=== PATIENT | female | born 1945 | race Caucasian/White ===

== ENCOUNTER 2016-03-22 13:34 | Outpatient (CLI) | payer MEDICARE | END 2016-03-22 13:35 | disposition home or self-care (01) | DX: J20.9 Acute bronchitis, unspecified (principal) ==

== ENCOUNTER 2016-06-30 10:49 | Emergency (ER) | payer MEDICARE ==
[2016-06-30] MEDS ORDERED: DEXAMETHASONE 10 MG/ML VIAL PO STA (11:46)
[2016-06-30] MEDS ORDERED: BENZONATATE 100 MG CAPSULE PO STA (11:46)
[2016-06-30] MEDS ORDERED: IPRATROPIUM/ALBUTEROL 3 ML NEB INH STA (11:46)
[2016-06-30] MEDS ORDERED: guaiFENesin/CODEINE 5 ML UDC PO STA (11:46)
[2016-06-30] MEDS ORDERED: IPRATROPIUM/ALBUTEROL 3 ML NEB INH ONE (11:47)
--- NOTE | 2016-06-30 11:48 | ED Physician Documentation ---
History of Present Illness - Stated complaint Stated Complaint: SOA - Chief complaint Chief Complaint: Resp - Additonal information Additional information: hx from pt 71 female with COPD dx on recent CXR = PFTs pending non smoker inc cough and wheeze 2/2 seasonal allergies using MDI every hour but cannot breathe deeply enough to be effective no travel or leg edema no hx CHF Review of Systems Cardiac: denies: Chest pain / pressure Respiratory: reports: Dyspnea, Cough, Wheezing GI: denies: Abdominal Pain Musculoskeletal: denies: Extremity pain, Extremity swelling Endocrine: denies: Easy bruising / bleeding Immunocompromised: denies: Immunocompromised PD PAST MEDICAL HISTORY - Past Medical History Past Medical History: Yes Cardiovascular: Hypertension Respiratory: Asthma, COPD - Present Medications Home Medications: Ambulatory Orders Medication Instructions Recorded Confirmed Acetaminophen/Cod 300/30 [Tylenol 1 tab PO Q6HR PRN 06/30/16 06/30/16 #3] Albuterol 2.5 mg INH Q4H PRN #30 neb 06/30/16 Albuterol Sulf [Ventolin Hfa 2 puffs INH Q3HR PRN 06/30/16 06/30/16 Inhaler] Fluticasone [Flonase] 1 sprays ARLENE BID PRN #1 bottle 06/30/16 Lisinopril 10 mg PO PRN 06/30/16 06/30/16 predniSONE [Deltasone] 60 mg PO DAILY 5 Days 06/30/16 traMADol [Ultram] 50 mg PO DAILY PRN 06/30/16 06/30/16 - Allergies Allergies/Adverse Reactions: Allergies Allergy/AdvReac Type Severity Reaction Status Date / Time aspirin Allergy Anaphylaxis Verified 06/30/16 10:57 - Social History Does the pt smoke?: Yes Smoking Status: Current every day smoker - Immunizations Immunizations are current?: No PD ED PE NORMAL - Vitals Vital signs reviewed: Yes - General General: Alert and oriented X 3 - HEENT HEENT: Atraumatic - Neck Neck: Supple, no meningeal sign - Cardiac Cardiac: RRR - Respiratory Respiratory: Other (tight, poor air movement, no wheeze heard) - Abdomen Abdomen: Soft, Non tender - Extremities Extremities: No edema, No calf tenderness / cord - Neuro Neuro: Alert and oriented X 3 Results - Vitals Vitals: Vital Signs - 24 hr 06/30/16 06/30/16 06/30/16 10:53 11:50 12:19 Temperature 36.9 C Heart Rate 89 108 H 88 Respiratory 22 22 14 Rate Blood Pressure 170/90 H 166/94 H O2 Saturation 100 96 Oxygen O2 Source Room air PD MEDICAL DECISION MAKING - ED course ED course: pt having diff using MDI 2/2 tight shallow resp - feel pt will benefit from a nebulizer machine for administration of bronchodilators for her COPD exacerbations pt better after neb Departure - Departure Disposition: Home, Self Care Clinical Impression: COPD (chronic obstructive pulmonary disease) Qualifiers: COPD type: unspecified COPD Qualified Code(s): J44.9 - Chronic obstructive pulmonary disease, unspecified Condition: Good Instructions: ED COPD Flare Follow-Up: Norma Mcmahon ARNP [Primary Care Provider] - (for a recheck within 48 hr) Prescriptions: Albuterol 2.5 mg INH Q4H PRN #30 neb PRN Reason: Wheezing predniSONE [Deltasone] 60 mg PO DAILY 5 Days Fluticasone [Flonase] 1 sprays ARLENE BID PRN #1 bottle PRN Reason: allergies Comments: Your blood pressure was high today - please follow up with your PMD about that Forms: Activity restrictions
[2016-06-30] MEDS ORDERED: guaiFENesin/DEXTROMETHORPHAN 10 ML UDC PO STA (12:12)
[2016-06-30] MEDS ORDERED: BENZONATATE 100 MG CAPSULE PO ONE (12:12)
[2016-06-30] MEDS ORDERED: CHERRY SYRUP 10 ML UDC PO ONE (12:12)
[2016-06-30] MEDS ORDERED: guaiFENesin/DEXTROMETHORPHAN 10 ML UDC ONE (12:13)
[2016-06-30] MEDS ORDERED: DEXAMETHASONE 10 MG/ML VIAL ONE (12:13)
[2016-06-30 12:20] VITALS: BP 166/94
--- NOTE | 2016-06-30 13:16 | XRAY Report ---
EXAM: CHEST RADIOGRAPHY EXAM DATE: 06/30/2016 12:30 PM. CLINICAL HISTORY: Cough. COMPARISON: 03/22/2016. TECHNIQUE: 2 views. FINDINGS: Lungs/Pleura: New focal patchy small opacity in the medial anterior right lower lobe visualized. No p leural effusion. No pneumothorax. Mediastinum: Heart and mediastinal contours are unremarkable. IMPRESSION: New focal patchy small opacity in the medial anterior right lower lob, suggesting new fo masha infiltrate, pneumonia. [facility] Referring Provider Line: [phone] SITE ID: [id number]
== END 2016-06-30 13:25 | disposition home or self-care (01) ==
LOC: ED 10:49
DX: J44.9 Chronic obstructive pulmonary disease, unspecified (principal); I10 Essential (primary) hypertension; F17.200 Nicotine dependence, unspecified, uncomplicated
CPT/HCPCS: 71020; 94640; 94664; 99282; 99284; A9270; J7620

== ENCOUNTER 2016-12-02 10:34 | Outpatient (CLI) | payer MEDICARE ==
[2016-12-02 18:06] LABS: BASOPHILS # (AUTO) 0.1 10^3/uL (0.0-0.1); BASOPHILS % (AUTO) 0.9 %; EOSINOPHILS # (AUTO) 0.4 10^3/uL (0.0-0.7); EOSINOPHILS % (AUTO) 6.9 %; HCT - HEMATOCRIT 38.3 % (37.0-47.0); HGB - HEMOGLOBIN 12.7 g/dL (12.0-16.0); LYMPHOCYTES # (AUTO) 1.5 10^3/uL (1.5-3.5); LYMPHOCYTES % (AUTO) 25.9 %; MEAN CORPUSCULAR HEMOGLOBIN 28.9 pg (27.0-31.0); MEAN CORPUSCULAR HGB CONC 33.1 g/dL (32.0-36.0); MEAN CORPUSCULAR VOLUME 87.3 fL (81.0-99.0); MEAN PLATELET VOLUME 8.1 fL (7.9-10.8); MONOCYTES # (AUTO) 0.4 10^3/uL (0.0-1.0); MONOCYTES % (AUTO) 6.9 %; NEUTROPHILS # (AUTO) 3.4 10^3/uL (1.5-6.6); NEUTROPHILS % (AUTO) 59.4 %; RED BLOOD COUNT 4.38 10^6/uL (4.20-5.40); RED CELL DISTRIBUTION WIDTH 13.3 % (12.0-15.0); UNCORRECTED WHITE BLOOD COUNT 5.7 x10^3/uL; WHITE BLOOD COUNT 5.7 x10^3/uL (4.8-10.8)
[2016-12-02 18:48] LABS: ALBUMIN/GLOBULIN RATIO 1.3 (1.0-2.2); BILIRUBIN,TOTAL 0.7 mg/dL (0.2-1.0); BUN - BLOOD UREA NITROGEN 15 mg/dL (6-20); CALCIUM 8.6 mg/dL (8.5-10.3); CARBON DIOXIDE - CO2 26 mmol/L (21-32); CHLORIDE 106 mmol/L (101-111); CHOL/HDL RATIO 4.5 (<4.4); CHOLESTEROL 255 mg/dL; CREATININE 0.7 mg/dL (0.4-1.0); GFR - MDRD 83 (>89); GLUCOSE 93 mg/dL (70-100); HDL CHOLESTEROL 57 mg/dL; POTASSIUM 4.1 mmol/L (3.5-5.0); SODIUM 137 mmol/L (135-145); TOTAL PROTEIN 5.9 g/dL (6.7-8.2); TRIGLYCERIDES 127 mg/dL; VLDL CHOLESTEROL 25 mg/dL
== END 2016-12-02 10:35 | disposition home or self-care (01) ==
LOC: LAB.F 10:34
PROVIDERS: ATTEND Nurse Practitioner Family
DX: F32.9 Major depressive disorder, single episode, unspecified (principal); E78.5 Hyperlipidemia, unspecified
CPT/HCPCS: 80053; 80061; 84443; 85025

== ENCOUNTER 2017-01-07 15:22 | Outpatient (CLI) | payer MEDICARE ==
--- NOTE | 2017-01-08 08:26 | XRAY Report ---
TWO-VIEW CHEST: 01/07/2017 CLINICAL INDICATION: Cough. COMPARISON: 06/30/2016 FINDINGS: Frontal and lateral views of the chest demonstrate a normal cardiac silhouette. The previ ously noted parenchymal opacity in the medial right lower lobe persists. No effusion or pneumothorax is present. IMPRESSION: PERSISTENT PARENCHYMAL OPACITY IN THE MEDIAL RIGHT LOWER LOBE. CONSIDER CHEST CT FOR FU RTHER EVALUATION. JOB #: [id number] EXT JOB #:[id number]
== END 2017-01-07 15:23 | disposition home or self-care (01) ==
LOC: DI.S 15:22
PROVIDERS: ATTEND Nurse Practitioner Family
DX: R91.8 Other nonspecific abnormal finding of lung field (principal)
CPT/HCPCS: 71020

== ENCOUNTER 2017-01-14 14:43 | Outpatient (CLI) | payer MEDICARE ==
--- NOTE | 2017-01-15 13:52 | CT Report ---
EXAM: CT CHEST EXAM DATE: 01/14/2017 03:08 PM. CLINICAL HISTORY: COUGH. COMPARISONS: None. TECHNIQUE: Routine helical CT imaging was performed through the chest. IV contrast: None. Reconstruct ions: Coronal and sagittal. In accordance with CT protocol optimization, one or more of the following dose reduction techniques w ere utilized for this exam: automated exposure control, adjustment of mA and/or KV based on patient s ize, or use of iterative reconstructive technique. FINDINGS: Lungs/Pleura: There is a 3 mm pulmonary nodule in the left lung base (series 4, image 42). There is a 4 mm pulmonary nodule left lung base (series 4, image 37). No focal consolidation or pleural effusio n. Mediastinum: Normal. No adenopathy or masses. The heart and great vessels are normal. Bones: Unremarkable. Visualized Abdomen: Unremarkable. Other: None. IMPRESSION: 1. There are 2 pulmonary nodules in the left lung base measuring up to 4 mm. Please see/exercise nessa mmendations below. 2. No focal consolidation or pleural effusion. 3. No lymphadenopathy. Recommend follow-up of the described nodule(s) according to the following guidelines: Fleischner Society Recommendations 2017 MacMahon et al. Radiology 2017 Solid Nodules-Low Risk Patients: <6 mm (single or multiple) - No routine follow-up* 6-8 mm (single) -CT 6-12 at months, then consider CT at 18-24 months 6-8mm (multiple) -CT 3-6 at mo, then consider at CT 18-24 months >8 mm (single) -Consider CT, PET/CT, or tissue sampling at 3 months >8 mm (multiple) -CT 3-6 at mo, then consider CT at 18-24 months Solid Nodules-High Risk Patients: <6 mm (single or multiple) -Optional CT at 12 months* 6-8 mm (single) -CT at 6-12 months, then CT at 18-24 months 6-8mm (multiple) -CT at 3-6 months, then CT at 18-24 months >8 mm (single) -Consider CT, PET/CT, or tissue sampling at 3 months >8 mm (multiple) -CT at 3-6 months, then at 18-24 months *Nodules < 6mm do not require routine follow-up, but suspicious nodule morphology, upper lobe locatio n, or both may warrant 12 month follow-up Subsolid nodules: <6 mm (single, GG or part solid) -No routine follow-up >=6 mm (single GG) -CT at 6-12 months to confirm, then CT q2 years until 5 years >=6 mm (single part solid) -CT at 3-6 months to confirm, if unchanged and solid <6mm, annual CT for 5 years <6 mm (multiple GG or part solid) -CT at 3-6 months. If stable, consider CT at 2 and 4 years >=6 mm (multiple GG or part solid) -CT at 3-6 months. Subsequent management based on most suspicious nodule(s). Consider follow-up at 2 and 4 years for certain suspicious nodules <6mm. If solid component develo ps or growth, consider resection. [facility] Referring Provider Line: [phone] SITE ID: [id number]
== END 2017-01-14 14:44 | disposition home or self-care (01) ==
LOC: DI 14:43
PROVIDERS: ATTEND Nurse Practitioner Family
DX: R91.8 Other nonspecific abnormal finding of lung field (principal)
CPT/HCPCS: 71250

== ENCOUNTER 2017-02-27 08:00 | Outpatient (CLI) | payer MEDICARE ==
[2017-02-27 17:14] LABS: MUDS CUTOFF CONCENTRATIONS CUTOFF CONC BELOW:
[2017-02-27 17:55] LABS: AMPHETAMINE SCREEN,URINE NEGATIVE (NEGATIVE); BENZODIAZEPINES SCREEN, URINE NEGATIVE (NEGATIVE); COCAINE SCREEN URINE NEGATIVE (NEGATIVE); METHADONE SCREEN, URINE NEGATIVE (NEGATIVE); METHAMPHETAMINES SCREEN, URINE NEGATIVE (NEGATIVE); OPIATE SCREEN, URINE POSITIVE (NEGATIVE); OXYCODONE SCREEN, URINE NEGATIVE (NEGATIVE); PROPOXYPHENE SCREEN, URINE NEGATIVE (NEGATIVE); TRICYCLIC ANTIDEPRESSANT,URINE NEGATIVE (NEGATIVE)
== END 2017-02-27 08:01 ==
LOC: LAB.R 08:00
PROVIDERS: ATTEND Nurse Practitioner Family
DX: G89.29 Other chronic pain (principal)
CPT/HCPCS: 80306

== ENCOUNTER 2017-03-09 13:52 | Outpatient (CLI) | payer MEDICARE ==
[~2017-03-09 13:52] MED LIST: ALBUTEROL NEB 2.5 MG/3 ML INH ONE
[2017-03-09] MEDS ORDERED: ALBUTEROL NEB 2.5 MG/3 ML INH ONE (15:00)
== END 2017-03-09 13:53 | disposition home or self-care (01) ==
LOC: RT 13:52
PROVIDERS: ATTEND Nurse Practitioner Family
DX: R05 Cough (principal)
CPT/HCPCS: 94060; J7613

== ENCOUNTER 2017-12-22 10:38 | Outpatient (CLI) | payer MEDICARE ==
--- NOTE | 2017-12-22 14:58 | Ultrasound Report ---
Reason: ABDOMINAL MASS Procedure Date: 12/22/2017 Accession Number: [id number] / [id number] Procedure: US - Abdomen Limited CPT Code: FULL RESULT: EXAM: ABDOMEN ULTRASOUND LIMITED, RUQ EXAM DATE: 12/22/2017 11:22 AM. CLINICAL HISTORY: Abdominal mass. COMPARISON: None. TECHNIQUE: Real-time scanning was performed with static images obtained. FINDINGS: Abdominal Wall: Focused ultrasound is performed over the patient's right lower quadrant at the site of a palpable mass at the site of an old appendectomy site. There is a narrow necked, fat-containing hernia which is not reducible with the probe pressure. No evidence of entrapped bowel. The neck of the hernia measures roughly 1.2 x 1.1 cm in transverse dimension; herniated fat measures roughly 4 cm in size. IMPRESSION: Focal fat-containing abdominal wall hernia at the site of a prior appendectomy site as described. [facility]
== END 2017-12-22 10:39 | disposition home or self-care (01) ==
LOC: DI 10:38
PROVIDERS: ATTEND Nurse Practitioner Family
DX: K43.9 Ventral hernia without obstruction or gangrene (principal)
CPT/HCPCS: 76705

== ENCOUNTER 2018-02-19 09:03 | Outpatient (CLI) | payer MEDICARE ==
[2018-02-19 09:08] LABS: MUDS CUTOFF CONCENTRATIONS CUTOFF CONC BELOW:
[2018-02-19 17:22] LABS: BASOPHILS % (AUTO) 0.8 %; EOSINOPHILS # (AUTO) 0.5 10^3/uL (0.0-0.7); EOSINOPHILS % (AUTO) 8.6 %; LYMPHOCYTES # (AUTO) 1.8 10^3/uL (1.5-3.5); LYMPHOCYTES % (AUTO) 32.6 %; MEAN CORPUSCULAR HEMOGLOBIN 28.9 pg (27.0-31.0); MEAN CORPUSCULAR HGB CONC 32.9 g/dL (32.0-36.0); MEAN CORPUSCULAR VOLUME 87.9 fL (81.0-99.0); MEAN PLATELET VOLUME 8.3 fL (7.9-10.8); MONOCYTES # (AUTO) 0.4 10^3/uL (0.0-1.0); MONOCYTES % (AUTO) 6.5 %; NEUTROPHILS # (AUTO) 2.8 10^3/uL (1.5-6.6); NEUTROPHILS % (AUTO) 51.5 %; PLT - PLATELET COUNT 253 10^3/uL (130-450); RED BLOOD COUNT 4.51 10^6/uL (4.20-5.40); RED CELL DISTRIBUTION WIDTH 13.4 % (12.0-15.0); WHITE BLOOD COUNT 5.5 x10^3/uL (4.8-10.8)
[2018-02-19 17:35] LABS: ALBUMIN 3.3 g/dL (3.2-5.5); ALBUMIN/GLOBULIN RATIO 1.2 (1.0-2.2); ALKALINE PHOSPHATASE 52 IU/L (42-121); ALT ALANINE AMINOTRANSFERASE 18 IU/L (10-60); AST ASPARTATE AMINOTRANSFERASE 21 IU/L (10-42); BILIRUBIN,TOTAL 0.9 mg/dL (0.2-1.0); BUN - BLOOD UREA NITROGEN 13 mg/dL (6-20); CALCIUM 8.8 mg/dL (8.5-10.3); CARBON DIOXIDE - CO2 29 mmol/L (21-32); CHLORIDE 104 mmol/L (101-111); CHOL/HDL RATIO 3.9 (<4.4); CHOLESTEROL 288 mg/dL; CREATININE 0.7 mg/dL (0.4-1.0); GFR - MDRD 82 (>89); GLUCOSE 92 mg/dL (70-100); HDL CHOLESTEROL 74 mg/dL; LDL CHOLESTEROL,CALCULATED 191 mg/dL; LDL/HDL RATIO 2.6 (<4.4); SODIUM 140 mmol/L (135-145); VLDL CHOLESTEROL 23 mg/dL
[2018-02-19 17:42] LABS: AMPHETAMINE SCREEN,URINE NEGATIVE (NEGATIVE); BENZODIAZEPINES SCREEN, URINE NEGATIVE (NEGATIVE); COCAINE SCREEN URINE NEGATIVE (NEGATIVE); METHADONE SCREEN, URINE NEGATIVE (NEGATIVE); METHAMPHETAMINES SCREEN, URINE NEGATIVE (NEGATIVE); OPIATE SCREEN, URINE POSITIVE (NEGATIVE); OXYCODONE SCREEN, URINE NEGATIVE (NEGATIVE); PROPOXYPHENE SCREEN, URINE NEGATIVE (NEGATIVE); TRICYCLIC ANTIDEPRESSANT,URINE NEGATIVE (NEGATIVE)
== END 2018-02-19 09:04 | disposition home or self-care (01) ==
LOC: LAB.F 09:03
PROVIDERS: ATTEND Nurse Practitioner Family
DX: I10 Essential (primary) hypertension (principal); Z79.891 Long term (current) use of opiate analgesic; E78.5 Hyperlipidemia, unspecified; F32.9 Major depressive disorder, single episode, unspecified
CPT/HCPCS: 36415; 80053; 80061; 80306; 83721; 84443; 85025

== ENCOUNTER 2018-04-17 15:26 | Outpatient (CLI) | payer MEDICARE ==
--- NOTE | 2018-04-18 17:37 | XRAY Report ---
Reason: COPD,ACUTE EXACERBATION Procedure Date: 04/17/2018 Accession Number: [id number] / [id number] Procedure: XR - Chest 2 View X-Ray CPT Code: 61859 FULL RESULT: EXAM: CHEST RADIOGRAPHY EXAM DATE: 04/17/2018 03:34 PM. CLINICAL HISTORY: COPD, acute exacerbation. COMPARISON: CHEST 2 VIEW PA/LAT 06/30/2016 11:52 AM. TECHNIQUE: 2 views. FINDINGS: Lungs/Pleura: No focal opacities evident. No pleural effusion. No pneumothorax. High normal lung volumes and flattened diaphragms are compatible with given history of COPD. Mediastinum: Heart and mediastinal contours are unremarkable. Other: None. IMPRESSION: COPD with no acute consolidation detected. [facility]
== END 2018-04-17 15:27 | disposition home or self-care (01) ==
LOC: DI 15:26
PROVIDERS: ATTEND Nurse Practitioner
DX: J44.1 Chronic obstructive pulmonary disease with (acute) exacerbation (principal)
CPT/HCPCS: 71046

== ENCOUNTER 2019-01-21 09:39 | Outpatient (CLI) | payer MEDICARE ==
[2019-01-21 17:25] LABS: BASOPHILS # (AUTO) 0.1 10^3/uL (0.0-0.1); EOSINOPHILS # (AUTO) 0.5 10^3/uL (0.0-0.7); HGB - HEMOGLOBIN 12.5 g/dL (12.0-16.0); LYMPHOCYTES # (AUTO) 2.1 10^3/uL (1.5-3.5); LYMPHOCYTES % (AUTO) 33.4 %; MEAN CORPUSCULAR HEMOGLOBIN 27.7 pg (27.0-31.0); MEAN CORPUSCULAR HGB CONC 30.2 g/dL (32.0-36.0); MEAN CORPUSCULAR VOLUME 91.8 fL (81.0-99.0); MEAN PLATELET VOLUME 10.6 fL (7.9-10.8); MONOCYTES # (AUTO) 0.5 10^3/uL (0.0-1.0); MONOCYTES % (AUTO) 7.5 %; NEUTROPHILS # (AUTO) 3.1 10^3/uL (1.5-6.6); NEUTROPHILS % (AUTO) 49.8 %; PLT - PLATELET COUNT 274 10^3/uL (130-450); RED BLOOD COUNT 4.51 10^6/uL (4.20-5.40); RED CELL DISTRIBUTION WIDTH 12.6 % (12.0-15.0); WHITE BLOOD COUNT 6.1 x10^3/uL (4.8-10.8)
[2019-01-21 17:50] LABS: ALBUMIN 3.5 g/dL (3.2-5.5); ALBUMIN/GLOBULIN RATIO 1.3 (1.0-2.2); ALKALINE PHOSPHATASE 46 IU/L (42-121); ALT ALANINE AMINOTRANSFERASE 15 IU/L (10-60); AST ASPARTATE AMINOTRANSFERASE 20 IU/L (10-42); BILIRUBIN,TOTAL 0.8 mg/dL (0.2-1.0); BUN - BLOOD UREA NITROGEN 14 mg/dL (6-20); CALCIUM 8.9 mg/dL (8.5-10.3); CARBON DIOXIDE - CO2 31 mmol/L (21-32); CHLORIDE 103 mmol/L (101-111); CHOL/HDL RATIO 3.6 (<4.4); CHOLESTEROL 270 mg/dL; CREATININE 0.7 mg/dL (0.4-1.0); GFR - MDRD 82 (>89); GLUCOSE 96 mg/dL (70-100); HDL CHOLESTEROL 74 mg/dL; LDL CHOLESTEROL,CALCULATED 169 mg/dL; LDL/HDL RATIO 2.3 (<4.4); SODIUM 139 mmol/L (135-145); TOTAL PROTEIN 6.3 g/dL (6.7-8.2); VLDL CHOLESTEROL 27 mg/dL
== END 2019-01-21 09:40 | disposition home or self-care (01) ==
LOC: LAB.S 09:39
PROVIDERS: ATTEND Physician Assistant Medical
DX: I10 Essential (primary) hypertension (principal); E78.5 Hyperlipidemia, unspecified
CPT/HCPCS: 36415; 80053; 80061; 83721; 85025

== ENCOUNTER 2019-09-24 10:40 | Outpatient (CLI) | payer MEDICARE ==
[2019-09-24 15:13] LABS: BASOPHILS # (AUTO) 0.1 10^3/uL (0.0-0.1); EOSINOPHILS # (AUTO) 0.6 10^3/uL (0.0-0.7); EOSINOPHILS % (AUTO) 8.1 %; LYMPHOCYTES # (AUTO) 1.7 10^3/uL (1.5-3.5); LYMPHOCYTES % (AUTO) 23.1 %; MEAN CORPUSCULAR HEMOGLOBIN 27.9 pg (27.0-31.0); MEAN CORPUSCULAR HGB CONC 30.8 g/dL (32.0-36.0); MEAN CORPUSCULAR VOLUME 90.6 fL (81.0-99.0); MEAN PLATELET VOLUME 10.4 fL (7.9-10.8); MONOCYTES # (AUTO) 0.5 10^3/uL (0.0-1.0); NEUTROPHILS # (AUTO) 4.3 10^3/uL (1.5-6.6); NEUTROPHILS % (AUTO) 60.4 %; PLT - PLATELET COUNT 259 10^3/uL (130-450); RED BLOOD COUNT 4.66 10^6/uL (4.20-5.40); RED CELL DISTRIBUTION WIDTH 12.9 % (12.0-15.0); WHITE BLOOD COUNT 7.1 x10^3/uL (4.8-10.8)
[2019-09-24 16:17] LABS: ALBUMIN 3.5 g/dL (3.2-5.5); ALBUMIN/GLOBULIN RATIO 1.6 (1.0-2.2); ALKALINE PHOSPHATASE 51 IU/L (42-121); ALT ALANINE AMINOTRANSFERASE 18 IU/L (10-60); AST ASPARTATE AMINOTRANSFERASE 22 IU/L (10-42); BILIRUBIN,TOTAL 0.7 mg/dL (0.2-1.0); BUN - BLOOD UREA NITROGEN 16 mg/dL (6-20); CALCIUM 9.1 mg/dL (8.5-10.3); CARBON DIOXIDE - CO2 29 mmol/L (21-32); CHLORIDE 106 mmol/L (101-111); CHOL/HDL RATIO 3.7 (<4.4); CHOLESTEROL 264 mg/dL; CREATININE 0.9 mg/dL (0.4-1.0); GLUCOSE 98 mg/dL (70-100); HDL CHOLESTEROL 72 mg/dL; LDL CHOLESTEROL,CALCULATED 171 mg/dL; LDL/HDL RATIO 2.4 (<4.4); SODIUM 139 mmol/L (135-145); TOTAL PROTEIN 5.7 g/dL (6.7-8.2); VLDL CHOLESTEROL 21 mg/dL
== END 2019-09-24 10:41 | disposition home or self-care (01) ==
LOC: LAB.S 10:40
PROVIDERS: ATTEND Physician Assistant
DX: R53.83 Other fatigue (principal); Z79.899 Other long term (current) drug therapy; J44.9 Chronic obstructive pulmonary disease, unspecified; Z79.891 Long term (current) use of opiate analgesic; E78.5 Hyperlipidemia, unspecified; F32.9 Major depressive disorder, single episode, unspecified; I10 Essential (primary) hypertension
CPT/HCPCS: 36415; 80053; 80061; 82306; 83721; 84443; 85025

== ENCOUNTER 2020-06-16 08:45 | Outpatient (CLI) | payer MEDICARE | END 2020-06-16 08:46 | disposition home or self-care (01) | LOC: LAB.S 08:45 | PROVIDERS: ATTEND Physician Assistant | DX: F32.9 Major depressive disorder, single episode, unspecified (principal); R53.83 Other fatigue | CPT/HCPCS: 36415; 82306; 82607 ==

== ENCOUNTER 2021-02-17 14:13 | Outpatient (CLI) | payer MEDICARE ==
[2021-02-17 18:00] LABS: BASOPHILS # (AUTO) 0.1 10^3/uL (0.0-0.1); BASOPHILS % (AUTO) 0.7 %; EOSINOPHILS # (AUTO) 0.5 10^3/uL (0.0-0.7); HCT - HEMATOCRIT 39.6 % (37.0-47.0); LYMPHOCYTES # (AUTO) 1.6 10^3/uL (1.5-3.5); MEAN CORPUSCULAR HGB CONC 32.8 g/dL (32.0-36.0); MEAN CORPUSCULAR VOLUME 88.2 fL (81.0-99.0); MONOCYTES # (AUTO) 0.6 10^3/uL (0.0-1.0); MONOCYTES % (AUTO) 6.4 %; NEUTROPHILS # (AUTO) 6.9 10^3/uL (1.5-6.6); NEUTROPHILS % (AUTO) 71.4 %; PLT - PLATELET COUNT 273 10^3/uL (130-450); RED BLOOD COUNT 4.49 10^6/uL (4.20-5.40); RED CELL DISTRIBUTION WIDTH 12.4 % (12.0-15.0); WHITE BLOOD COUNT 9.7 x10^3/uL (4.8-10.8)
[2021-02-17 18:15] LABS: ALBUMIN 3.3 g/dL (3.2-5.5); ALBUMIN/GLOBULIN RATIO 1.2 (1.0-2.2); ALKALINE PHOSPHATASE 43 IU/L (42-121); ALT ALANINE AMINOTRANSFERASE 12 IU/L (10-60); AST ASPARTATE AMINOTRANSFERASE 16 IU/L (10-42); BILIRUBIN,TOTAL 0.3 mg/dL (0.2-1.0); BUN - BLOOD UREA NITROGEN 14 mg/dL (6-20); CALCIUM 8.9 mg/dL (8.5-10.3); CARBON DIOXIDE - CO2 24 mmol/L (21-32); CHLORIDE 105 mmol/L (101-111); CHOL/HDL RATIO 4.3 (<4.4); CHOLESTEROL 268 mg/dL; CREATININE 0.8 mg/dL (0.4-1.0); GFR - MDRD 70 (>89); GLUCOSE 105 mg/dL (70-100); HDL CHOLESTEROL 63 mg/dL; LDL CHOLESTEROL,CALCULATED 141 mg/dL; LDL/HDL RATIO 2.2 (<4.4); POTASSIUM 3.6 mmol/L (3.5-5.0); SODIUM 136 mmol/L (135-145); TOTAL PROTEIN 6.1 g/dL (6.7-8.2); TRIGLYCERIDES 318 mg/dL; VLDL CHOLESTEROL 64 mg/dL
== END 2021-02-17 14:14 | disposition home or self-care (01) ==
LOC: LAB.S 14:13
PROVIDERS: ATTEND Internal Medicine
DX: I10 Essential (primary) hypertension (principal); Z13.220 Encounter for screening for lipoid disorders
CPT/HCPCS: 36415; 80053; 80061; 83721; 85025

== ENCOUNTER 2021-05-26 10:52 | Outpatient (CLI) | payer MEDICARE | END 2021-05-26 10:53 | disposition short-term general hospital (02) | LOC: EMS 10:52 | DX: R07.9 Chest pain, unspecified (principal); R94.31 Abnormal electrocardiogram [ECG] [EKG] | CPT/HCPCS: A0425; A0429 ==

== ENCOUNTER 2021-07-19 08:00 | Outpatient (CLI) | payer MEDICARE ==
--- NOTE | 2021-07-19 16:48 | XRAY Report ---
PROCEDURE: Shoulder 3 View LT INDICATIONS: LEFT SHOULDER TENDINITIS TECHNIQUE: 3 views of the shoulder were acquired. COMPARISON: None. FINDINGS: Bones: No fractures or dislocations. No suspicious bony lesions. Visualized ribs appear intact. M ild periarticular osteophyte formation at the acromioclavicular and glenohumeral joints. Soft tissues: No suspicious soft tissue calcifications. IMPRESSION: Osteoarthritis. No acute fracture. No osseous lesion. If symptoms and/or clinical suspic ion for pathology continue, further assessment with repeat plain films, or advanced imaging (e.g., CT , MRI, or bone scan) is recommended for further assessment. Reviewed by: Tonya Pitts MD on 07/19/2021 4:46 PM PDT Approved by: Tonya Pitts MD on 07/19/2021 4:46 PM PDT Station ID: [id number]
--- NOTE | 2021-07-19 17:23 | XRAY Report ---
PROCEDURE: Lumbar Spine 2 View INDICATIONS: LOW BACK PAIN TECHNIQUE: 2 views of the lumbar spine were acquired. COMPARISON: None. FINDINGS: Bones: 5 [id number] vertebrae are present. There is trace, approximately 2 mm of L4-L5 degener ative anterolisthesis. No vertebral body compression fractures. No suspicious bony lesions. Moderate to severe L5-S1 degenerative disease. Moderate L4-L5 degenerative disease. Mild L1-L2 and L3-L4 dege nerative disease. Moderate L2-L3, L4, L4-L5 and L5-S1 facet hypertrophy. Mild L1-L2 facet hypertrophy . Soft tissues: Overlying bowel gas pattern is normal. No suspicious soft tissue calcifications. IMPRESSION: 1. Multilevel degenerative disc disease. 2. Multilevel facet arthropathy. 3. No fracture. No acute osseous lesion. If there is continued clinical concern for pathology, then M RI should be considered for further evaluation. Reviewed by: Camila Almaguer MD, PhD on 07/19/2021 5:22 PM PDT Approved by: Camila Almaguer MD, PhD on 07/19/2021 5:22 PM PDT Station ID: [id number]
== END 2021-07-19 23:59 | disposition home or self-care (01) ==
LOC: DI.S 08:00
PROVIDERS: ATTEND Emergency Medicine
DX: M47.816 Spondylosis without myelopathy or radiculopathy, lumbar region (principal); M47.896 Other spondylosis, lumbar region; M43.16 Spondylolisthesis, lumbar region; M51.36 Other intervertebral disc degeneration, lumbar region; M75.22 Bicipital tendinitis, left shoulder; M19.012 Primary osteoarthritis, left shoulder

== ENCOUNTER 2022-02-16 19:08 | Emergency (ER) | payer MEDICARE ==
[2022-02-16] MEDS ORDERED: diltiaZEM INJ 5 MG/ML VIAL IVP STA (19:24)
--- NOTE | 2022-02-16 19:26 | ED Physician Documentation ---
History of Present Illness - Stated complaint Stated Complaint: CHEST PX/SENT BY WALK IN - Chief complaint Chief Complaint: Cardiac - Additonal information Additional information: History is provided by patient who is a reliable historian. 76-year-old female comes to the emergency department for concerns of atrial fibrillation. Reports that yesterday about 8 AM she began having chest pressure without radiation. She went to a local walk-in clinic today who advised her to come to the emergency department when found to be in a fib She presents with an EKG showing a rhythm of atrial fibrillation in the 120s. The patient states that she had a heart attack in May 2021. She did have stent placement in the [facility]. She is followed by Dr. Arroyo and is scheduled to see him this upcoming . Patient reports to me that she ran out of her metoprolol about 3 days ago. Prescription is ready to fill though the pharmacy is closed on the weekend Patient has no alcohol or tobacco history. Denies any previous history of A. fib. No syncope or exertional dyspnea. meds: Lisinopril 5 mg daily, Plavix 75 mg daily, aspirin 81 mg daily, atorvastatin 80 mg daily, Metoprolol succinate 50 mg daily Review of Systems Constitutional: denies: Fever, Chills Cardiac: reports: Chest pain / pressure, Palpitations. denies: Pedal edema, C mara pain Respiratory: denies: Dyspnea, Cough, Hemoptysis GI: reports: Reviewed and negative : reports: Reviewed and negative Skin: reports: Reviewed and negative Musculoskeletal: reports: Reviewed and negative PD PAST MEDICAL HISTORY - Past Medical History Cardiovascular: Hypertension Respiratory: Asthma, COPD - Present Medications Home Medications: Ambulatory Orders Medication Instructions Recorded Confirmed Acetaminophen/Cod 300/30 [Tylenol 1 tab PO Q6HR PRN 06/30/16 06/30/16 #3] Albuterol 2.5 mg INH Q4H PRN #30 neb 06/30/16 Albuterol Sulf [Ventolin Hfa 2 puffs INH Q3HR PRN 06/30/16 06/30/16 Inhaler] Azithromycin [Zithromax] 250 mg PO DAILY #6 tablet 06/30/16 Benzonatate [Tessalon] 100 mg PO TID PRN #20 capsule 06/30/16 Benzonatate [Tessalon] 100 mg PO TID PRN #20 capsule 06/30/16 Fluticasone [Flonase] 1 sprays ARLENE BID PRN #1 bottle 06/30/16 guaiFENesin/CODEINE [Robitussin AC] 5 - 10 ml PO Q6H PRN #120 udc 06/30/16 predniSONE [Deltasone] 60 mg PO DAILY 5 Days tablet 06/30/16 traMADol [Ultram] 50 mg PO DAILY PRN 06/30/16 06/30/16 Apixaban [Eliquis] 2.5 mg PO BID #60 tablet 02/16/22 Aspirin [Vazalore] 81 mg PO DAILY 02/16/22 02/16/22 Atorvastatin Calcium 40 mg PO QPM 02/16/22 02/16/22 Clopidogrel [Plavix] 75 mg PO DAILY 02/16/22 02/16/22 Metoprolol Succinate [Toprol Xl] 50 mg PO DAILY #7 tablet 02/16/22 lisinopriL [Zestril] 5 mg PO DAILY 02/16/22 02/16/22 - Allergies Allergies/Adverse Reactions: Allergies Allergy/AdvReac Type Severity Reaction Status Date / Time aspirin Allergy Anaphylaxis Verified 06/30/16 10:57 - Social History Does the pt smoke?: Yes Smoking Status: Current every day smoker - Immunizations Immunizations are current?: No PD ED PE NORMAL - General General: Alert and oriented X 3, No acute distress, Well developed/nourished - HEENT HEENT: Atraumatic, Moist mucous membranes - Neck Neck: Supple, no meningeal sign, No adenopathy - Cardiac Cardiac: No murmur, Strong equal pulses. No: RRR (Irregularly irregular. 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 Eye Opening: Spontaneous Motor: Obeys Commands Verbal: Oriented GCS Score: 15 Results - Vitals Vitals: Vital Signs - 24 hr 02/16/22 02/16/22 02/16/22 19:10 19:45 20:13 Temperature 36.5 C Heart Rate 96 78 98 Respiratory 19 14 27 H Rate Blood Pressure 184/104 H 165/91 H 113/73 O2 Saturation 100 98 98 02/16/22 20:59 Temperature Heart Rate 90 Respiratory 18 Rate Blood Pressure 118/104 H O2 Saturation 100 Oxygen O2 Source Room air - EKG (time done) 193 Rate: Rate (enter#) (82) Rhythm: Atrial fibrillation [place]: Normal Intervals: No: Prolonged QT QRS: Low voltage Ischemia: Normal ST segments Compare to prior EKG: Old EKG unavailable Computer interpretation: Agree with computer - Labs Labs: Laboratory Tests 02/16/22 02/16/22 02/16/22 19:20 19:20 19:20 WBC 10.0 RBC 4.27 Hgb 12.2 Hct 38.4 MCV 89.9 MCH 28.6 MCHC 31.8 L RDW 13.8 Plt Count 291 MPV 9.4 Neut # (Auto) 8.1 H Lymph # (Auto) 1.3 L [place] # (Auto) 0.5 Eos # (Auto) 0.0 Baso # (Auto) 0.1 Absolute Nucleated RBC 0.00 Nucleated RBC % 0.0 PT 10.8 INR 1.0 Sodium 137 Potassium 4.2 Chloride 105 Carbon Dioxide 24 Anion Gap 8.0 BUN 19 Creatinine 0.9 Estimated GFR (MDRD) 61 L Glucose 125 H Calcium 9.4 Total Bilirubin 0.9 AST 25 ALT 21 Alkaline Phosphatase 52 Troponin I High Sens Total Protein 7.2 Albumin 3.9 Globulin 3.3 Albumin/Globulin Ratio 1.2 Lipase 39 TSH Free T4 02/16/22 02/16/22 19:20 19:20 WBC RBC Hgb Hct MCV MCH MCHC RDW Plt Count MPV Neut # (Auto) Lymph # (Auto) [place] # (Auto) Eos # (Auto) Baso # (Auto) Absolute Nucleated RBC Nucleated RBC % PT INR Sodium Potassium Chloride Carbon Dioxide Anion Gap BUN Creatinine Estimated GFR (MDRD) Glucose Calcium Total Bilirubin AST ALT Alkaline Phosphatase Troponin I High Sens 19.5 H* Total Protein Albumin Globulin Albumin/Globulin Ratio Lipase TSH 0.77 Free T4 0.87 - Rads (name of study) cxr Radiology: EMP read indepedently (No acute cardiopulmonary process) PD Medical Decision Making - ED course Complexity details: reviewed results, re-evaluated patient, considered differential, d/w patient ED course: 76-year-old female presents to the emergency department for evaluation of chest pain and pressure that she noticed yesterday morning when she woke up. She does have a history of a myocardial infarction in May of this last year for which she underwent LAD stenting at [place]. She is scheduled to see Dr. Arroyo this upcoming . Due to the persistent chest pressure she went to a local walk-in clinic this afternoon where they did an EKG and found her to be in A. fib with a heart rate of 120 she was thus advised to come to the emergency department for further evaluation. She has no dyspnea. No history of similar in the past. On presentation to the emergency department she is alert and well-appearing. Initial heart rate was atrial for bearable with a rate in the 120s. She was well-appearing alert and normotensive. She was given 10 mg of Cardizem which appropriately slowed her heart rate into the 80s and 90s though it remained atrial fibrillation. I then administered a 30 mg dose of oral Cardizem. Patient reported to me that she had metoprolol now for about 3 days and due to pharmacy closure has been unable to fill the readied prescription. We did obtain routine labs here in the emergency department including a CBC electrolytes troponin and thyroid panel. No acute worrisome findings however her troponin was mildly elevated at 19.8. This is likely a mild elevation in the setting of A. fib without rate control. A repeat troponin Was 22 essentially flat or static. Patient does have a CHADS2 Vasc score of 5 giving her a 7% risk of stroke associated with A. fib over the next year. Given this she will be started on Eliquis 2.5 mg daily (Patient weighs 58 kg.) She is advised to stop taking the aspirin and Plavix. Given that she has been out of the metoprolol now for 3 to 4 days I will also give her a limited prescription for the metoprolol until she is able to fill it at this pharmacy this week. Resuming the metoprolol should be appropriate for rate control Given the small dose of diltiazem she received here in the ER Patient is scheduled to see Dr. Arroyo in follow-up this upcoming . At that time she will discuss this ED visit as well as her recent myocardial infarction. She would likely benefit from an outpatient echo. Otherwise emergent return precautions were discussed. Departure - Departure Disposition: Home, Self Care Clinical Impression: Atrial fibrillation Qualifiers: Atrial fibrillation type: unspecified Qualified Code(s): I48.91 - Unspecified atrial fibrillation Condition: Stable Record reviewed to determine appropriate education?: Yes Instructions: Atrial Fibrillation Dc, Apixaban oral tablets Prescriptions: Apixaban [Eliquis] 2.5 mg PO BID #60 tablet Metoprolol Succinate [Toprol Xl] 50 mg PO DAILY #7 tablet Comments: Ada shaw were seen today in the emergency department because you developed some chest pain and chest pressure yesterday morning. You do have a history of myocardial infarction in May for which she received stenting. You were found to be in atrial fibrillation. Your initial heart rate was in the 120s but a single dose of 10 mg of diltiazem appropriately reduced your heart rate into the 80s. You have been out of your metoprolol now for about 3 days and this may be one of the causes. However you are at high risk for a stroke associated with atrial fibrillation if you are not anticoagulated therefore we will start you on Eliquis an anticoagulant. You will take 2.5 mg twice daily. If at any point you develop sudden severe headache, have uncontrolled vomiting, have black or bloody stools, fall or strike your head you should come immediately to the ER for evaluation. You must stop taking the aspirin and Plavix at this time. I have written a 7-day prescription for Metroprolol. This is also been sent to the [facility] in [place]. This would be an appropriate medication to control your atrial fibrillation rate, Until you fill your waiting prescription at [facility] [place] When you see Dr. Arroyo this upcoming please discuss this ED visit. He may want to consider outpatient echocardiogram for further evaluation of your atrial fibrillation. If at any point you develop chest pain have shortness of air when walking, any fainting episodes then you should return immediately to the ER for a second evaluation
[2022-02-16 19:27] LABS: BASOPHILS # (AUTO) 0.1 10^3/uL (0.0-0.1); BASOPHILS % (AUTO) 0.6 %; EOSINOPHILS % (AUTO) 0.3 %; HCT - HEMATOCRIT 38.4 % (37.0-47.0); HGB - HEMOGLOBIN 12.2 g/dL (12.0-16.0); LYMPHOCYTES # (AUTO) 1.3 10^3/uL (1.5-3.5); LYMPHOCYTES % (AUTO) 12.7 %; MEAN CORPUSCULAR HEMOGLOBIN 28.6 pg (27.0-31.0); MEAN CORPUSCULAR HGB CONC 31.8 g/dL (32.0-36.0); MEAN CORPUSCULAR VOLUME 89.9 fL (81.0-99.0); MEAN PLATELET VOLUME 9.4 fL (7.9-10.8); MONOCYTES # (AUTO) 0.5 10^3/uL (0.0-1.0); MONOCYTES % (AUTO) 4.8 %; NEUTROPHILS # (AUTO) 8.1 10^3/uL (1.5-6.6); NEUTROPHILS % (AUTO) 81.3 %; PLT - PLATELET COUNT 291 10^3/uL (130-450); RED BLOOD COUNT 4.27 10^6/uL (4.20-5.40); RED CELL DISTRIBUTION WIDTH 13.8 % (12.0-15.0)
--- NOTE | 2022-02-16 19:37 | XRAY Report ---
PROCEDURE: Chest 1 View X-Ray INDICATIONS: Chest Pain TECHNIQUE: One view of the chest was acquired. COMPARISON: Chest radiograph 04/17/2018 FINDINGS: Surgical changes and devices: None. Lungs and pleura: No pleural effusions or pneumothorax. No definite suspicious focal airspace opacit y identified. Mediastinum: Cardiac silhouette is within normal limits for size. Bones and chest wall: No suspicious bony lesions. Overlying soft tissues appear unremarkable. IMPRESSION: No acute cardiopulmonary abnormality. Reviewed by: Aly Dash MD on 02/16/2022 7:36 PM PST Approved by: Aly Dash MD on 02/16/2022 7:36 PM [facility] Station ID: [id number]
--- OUTSIDE RECORDS SUMMARY | 2022-02-16 19:42 | EXTERNAL MEDICAL SUMMARY RPT | Continuity of Care Document ---
:1945 Author Organization [place] Address [address] [place] [address] Phone Care Team Providers Name Role Phone Unavailable Unavailable Unavailable Pamela Boles Unavailable Unavailable Allergies No information. Encounters No information. Functional Status No information. Immunizations No information. Medications date description facility 2021-11-29 00:00 prednisone [facility] noemi 2021-12-07 00:00 prednisone [facility] noemi 2021-11-29 00:00 ACETAMINOPHEN-CODEINE [facility] noemi 2021-11-30 00:00 ACETAMINOPHEN-CODEINE [facility] noemi 2021-12-07 00:00 ACETAMINOPHEN-CODEINE [facility] noemi 2021-11-29 00:00 fluticasone propion-salmeterol [facility] noemi 2021-11-29 00:00 acetaminophen-codeine [facility] C noemi 2021-11-30 00:00 acetaminophen-codeine [facility] noemi 2021-12-07 00:00 acetaminophen-codeine [facility] noemi 2021-11-29 00:00 lisinopril [facility] Verena franklin 2021-11-30 00:00 lisinopril [facility] C noemi 2021-12-07 00:00 lisinopril [facility] C noemi 2021-11-29 00:00 prednisone [facility] Verena franklin 2021-11-30 00:00 prednisone [facility] noemi 2021-12-07 00:00 prednisone [facility] C noemi 2021-11-29 00:00 prednisone [facility] C noemi 2021-12-07 00:00 prednisone [facility] C noemi 2021-11-29 00:00 prednisone [facility] C noemi 2021-11-30 00:00 prednisone [facility] C noemi 2021-12-07 00:00 prednisone [facility] C noemi 2021-11-29 00:00 prednisone [facility] C noemi 2021-12-07 00:00 prednisone [facility] C noemi 2021-11-29 00:00 prednisone [facility] C noemi 2021-11-30 00:00 prednisone [facility] C noemi 2021-12-07 00:00 prednisone [facility] C noemi 2021-11-29 00:00 aspirin [facility] C noemi 2021-11-30 00:00 aspirin [facility] C noemi 2021-12-07 00:00 aspirin [facility] Verena franklin 2021-11-29 00:00 fluticasone propion-salmeterol [facility] C noemi 2021-11-29 00:00 fluticasone propion-salmeterol [facility] C noemi 2021-11-29 00:00 prednisone [facility] C noemi 2021-12-07 00:00 prednisone [facility] C noemi 2021-11-29 00:00 prednisone [facility] C noemi 2021-11-30 00:00 prednisone [facility] C noemi 2021-12-07 00:00 prednisone [facility] C noemi 2021-11-29 00:00 atorvastatin [facility] C noemi 2021-11-30 00:00 atorvastatin [facility] C noemi 2021-12-07 00:00 atorvastatin [facility] C noemi 2021-11-29 00:00 lisinopril [facility] C noemi 2021-11-30 00:00 lisinopril [facility] C noemi 2021-12-07 00:00 lisinopril [facility] C noemi 2021-11-29 00:00 loratadine [facility] C onemi 2021-12-07 00:00 loratadine [facility] C noemi 2021-11-29 00:00 clopidogrel [facility] C noemi 2021-11-30 00:00 clopidogrel [facility] C noemi 2021-12-07 00:00 clopidogrel [facility] C noemi 2021-11-29 00:00 lisinopril [facility] C noemi 2021-11-30 00:00 lisinopril [facility] C noemi 2021-12-07 00:00 lisinopril [facility] C noemi 2021-11-29 00:00 loratadine [facility] C noemi 2021-12-07 00:00 loratadine [facility] C noemi 2021-11-29 00:00 lisinopril [facility] C noemi 2021-11-30 00:00 lisinopril [facility] C noemi 2021-12-07 00:00 lisinopril [facility] C noemi 2021-11-29 00:00 ACETAMINOPHEN-CODEINE [facility] C noemi 2021-11-30 00:00 ACETAMINOPHEN-CODEINE [facility] C noemi 2021-12-07 00:00 ACETAMINOPHEN-CODEINE [facility] C noemi 2021-11-29 00:00 acetaminophen-codeine [facility] C noemi 2021-11-30 00:00 acetaminophen-codeine [facility] C noemi 2021-12-07 00:00 acetaminophen-codeine [facility] C noemi 2021-11-29 00:00 atorvastatin [facility] C noemi 2021-11-30 00:00 atorvastatin [facility] C noemi 2021-12-07 00:00 atorvastatin [facility] C noemi 2021-11-29 00:00 loratadine [facility] C noemi 2021-12-07 00:00 loratadine [facility] C noemi 2021-11-29 00:00 albuterol sulfate [facility] C noemi 2021-11-29 00:00 fluticasone propion-salmeterol [facility] C noemi 2021-11-29 00:00 albuterol sulfate [facility] C noemi 2021-11-29 00:00 clopidogrel [facility] C noemi 2021-11-30 00:00 clopidogrel [facility] C noemi 2021-12-07 00:00 clopidogrel [facility] C noemi 2021-11-29 00:00 loratadine [facility] C noemi 2021-12-07 00:00 loratadine [facility] C noemi 2021-11-29 00:00 clopidogrel [facility] C noemi 2021-11-30 00:00 clopidogrel [facility] C noemi 2021-12-07 00:00 clopidogrel [facility] C noemi 2021-11-29 00:00 atorvastatin [facility] C noemi 2021-11-30 00:00 atorvastatin [facility] C noemi 2021-12-07 00:00 atorvastatin [facility] C noemi 2021-11-29 00:00 aspirin [facility] C noemi 2021-11-30 00:00 aspirin [facility] C noemi 2021-12-07 00:00 aspirin [facility] C noemi 2021-11-29 00:00 ACETAMINOPHEN-CODEINE [facility] C noemi 2021-11-30 00:00 ACETAMINOPHEN-CODEINE [facility] C noemi 2021-12-07 00:00 ACETAMINOPHEN-CODEINE [facility] C noemi 2021-11-29 00:00 acetaminophen-codeine [facility] C noemi 2021-11-30 00:00 acetaminophen-codeine [facility] C noemi 2021-12-07 00:00 acetaminophen-codeine [facility] C noemi 2021-11-29 00:00 atorvastatin [facility] C noemi 2021-11-30 00:00 atorvastatin [facility] C noemi 2021-12-07 00:00 atorvastatin [facility] C noemi 2021-11-29 00:00 albuterol sulfate [facility] C noemi 2021-11-29 00:00 aspirin [facility] C noemi 2021-11-30 00:00 aspirin [facility] C noemi 2021-12-07 00:00 aspirin [facility] C noemi 2021-11-29 00:00 albuterol sulfate [facility] Verena franklin 2021-11-29 00:00 clopidogrel [facility] C noemi 2021-11-30 00:00 clopidogrel [facility] C noemi 2021-12-07 00:00 clopidogrel [facility] C noemi 2021-11-29 00:00 ACETAMINOPHEN-CODEINE [facility] Verena franklin 2021-11-30 00:00 ACETAMINOPHEN-CODEINE [facility] Verena franklin 2021-12-07 00:00 ACETAMINOPHEN-CODEINE [facility] Verena franklin 2021-11-29 00:00 acetaminophen-codeine [facility] Verena franklin 2021-11-30 00:00 acetaminophen-codeine [facility] Verena franklin 2021-12-07 00:00 acetaminophen-codeine [facility] Verena franklin Problems date description facility 2021-11-29 00:00 Thyroid disorder screening [facility] Verena franklin 2021-11-29 00:00 Panniculitis of neck [facility] Pr [facility] Verena franklin 2021-11-29 00:00 Long-term drug therapy [facility] Verena franklin 2021-11-29 00:00 Family history of alcoholism Walk-In [facility] Primary [facility] & Ancillary Services Verena franklin 2021-11-29 00:00 Hyperlipidemia screening [facility] Verena franklin 2021-11-29 00:00 Other and unspecified [facility] Care & hyperlipidemia Ancillary Services Verena franklin 2021-11-29 00:00 Depressive disorder, not elsewhere [facility] & classified [facility] Services C noemi 2021-11-29 00:00 Depressive disorder Walk[facility] Shiel[facility] Verena franklin 2021-11-29 00:00 Hypertensive disorder [facility] Verena franklin 2021-11-29 00:00 Unspecified essential hypertension [facility] Verena franklin 2021-11-29 00:00 Seasonal allergy [facility] Verena franklin 2021-11-29 00:00 Allergic rhinitis, cause [facility] & unspecified Ancillary Services Verena franklin 2021-11-29 00:00 Asthma, unspecified [facility] Shiela wilbur Care [facility] Anc[facility] Services Verena franklin 2021-11-29 00:00 Hyperlipidemia [facility] Verena franklin 2021-11-29 00:00 Chronic pain [facility] Verena franklin 2021-11-29 00:00 Reactive airway disease [facility] Verena cabanoemi 2021-11-29 00:00 Hyperlipidemia, unspecified [facility]In [facility] in [facility] Services Verena franklin 2021-11-29 00:00 Major depressive disorder, single Walk -[facility] Primary Care & episode, unspecified Ancillary Services Kaden 2021-11-29 00:00 Other chronic pain [facility] Verena noemi 2021-11-29 00:00 Essential (primary) hypertension [facility] Verena franklin 2021-11-29 00:00 Other seasonal allergic rhinitis [facility] Verena cabanoemi 2021-11-29 00:00 Unspecified asthma, uncomplicated [facility] Verena franklin 2021-11-29 00:00 Low back pain [facility] Verena franklin 2021-11-29 00:00 Long-term (current) drug use Walk-In [facility] Primary Care & Anc[facility] Services Verena franklin 2021-11-29 00:00 Alcoholism in family Walk[facility] Pr [facility] Services Verena franklin 2021-11-29 00:00 Screening for thyroid disorders [facility] Verena franklin 2021-11-29 00:00 Screening for lipoid disorders [facility] Verena franklin 2021-11-29 00:00 Encounter for screening for lipoid [facility] disorders [facility] Services Verena franklin 2021-11-29 00:00 Encounter for screening for other Walk -[facility] Primary Care & suspected endocrine disorder Ancillary S viky Alfonso 2021-11-29 00:00 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[facility] Primary Care & therapy Ancillary Services Verena franlkin 2021-11-29 00:00 Family history of alcohol abuse and Wa lk-In Clinic Primary Care & dependence Ancillary Services Verena franklin 2021-11-30 00:00 Panniculitis of neck Walk-In [facility] Pr [facility] Services Verena franklin 2021-11-30 00:00 Family history of alcoholism Walk-In [facility] Primary Care & Ancillary Services Verena franklin 2021-11-30 00:00 Other and unspecified Walk[facility] Care & hyperlipidemia Ancillary Services Verena franklin 2021-11-30 00:00 Depressive disorder, not elsewhere [facility] classified [facility] Services Verena franklin 2021-11-30 00:00 Depressive disorder Walk-In Clinic [facility] Care & Ancillary Services Verena franklin 2021-11-30 00:00 Hypertensive disorder [facility] Verena franklin 2021-11-30 00:00 Unspecified essential hypertension [facility] Verena franklin 2021-11-30 00:00 Seasonal allergy [facility] Verena franklin 2021-11-30 00:00 Allergic rhinitis, cause [facility] Care & unspecified Ancillary Services Verena franklin 2021-11-30 00:00 Asthma, unspecified Walk[facility]In [facility] Care & Ancillary Services Verena franklin 2021-11-30 00:00 Hyperlipidemia [facility] Verena franklin 2021-11-30 00:00 Chronic pain [facility] Verena franklin 2021-11-30 00:00 Reactive airway disease [facility] Verena franklin 2021-11-30 00:00 Hyperlipidemia, unspecified Walk[facility] Primary Care & Ancillary Services C noemi 2021-11-30 00:00 Major depressive disorder, single Walk -[facility] Primary Care & episode, unspecified Ancillary Services Kaden 2021-11-30 00:00 Other chronic pain [facility] Verena franklin 2021-11-30 00:00 Essential (primary) hypertension [facility] Services Verena franklin 2021-11-30 00:00 Other seasonal allergic rhinitis [facility]- [facility] Services C noemi 2021-11-30 00:00 Unspecified asthma, uncomplicated [facility] Verena franklin 2021-11-30 00:00 Low back pain [facility] Verena franklin 2021-11-30 00:00 Alcoholism in family Walk-In [facility] Pr [facility] & Anc[facility] Services Verena franklin 2021-11-30 00:00 Family history of alcohol abuse and Wa lk-In Clinic Primary Care & dependence Ancillary Services Verena franklin 2021-12-07 00:00 Panniculitis of neck Walk[facility] Pr [facility] Anc[facility] Services Verena franklin 2021-12-07 00:00 Family history of alcoholism Walk-In [facility] Primary Care & Ancillary Services Verena franklin 2021-12-07 00:00 Other and unspecified Walk-In [facility] P [facility] Care & hyperlipidemia Ancillary Services Verena franklin 2021-12-07 00:00 Depressive disorder, not elsewhere [facility] Care & classified Ancillary Services Verena franklin 2021-12-07 00:00 Depressive disorder Walk-In [facility] Shiela wilbur Care & Ancillary Services Verena franklin 2021-12-07 00:00 Hypertensive disorder Walk-In [facility] P [facility] & Anc[facility] Services Verena franklin 2021-12-07 00:00 Unspecified essential hypertension [facility] Services Verena franklin 2021-12-07 00:00 Seasonal allergy Walk[facility] Services Verena franklin 2021-12-07 00:00 Allergic rhinitis, cause [facility] Care & unspecified Ancillary Services Verena franklin 2021-12-07 00:00 Asthma, unspecified [facility] Shiela wilbur Care & Ancillary Services Verena franklin 2021-12-07 00:00 Hyperlipidemia Walk-In [facility] Services Verena cabanoemi 2021-12-07 00:00 Chronic pain Walk-[facility] Services Verena franklin 2021-12-07 00:00 Reactive airway disease [facility] Services Verena franklin 2021-12-07 00:00 Hyperlipidemia, unspecified [facility]In [facility] & Ancillary Services Verena franklin 2021-12-07 00:00 Major depressive disorder, single Walk -In [facility] Primary Care & episode, unspecified Ancillary Services Kaden 2021-12-07 00:00 Other chronic pain [facility] Services Verena franklin 2021-12-07 00:00 Essential (primary) hypertension [facility]- [facility] Ancillary Services Verena franklin 2021-12-07 00:00 Other seasonal allergic rhinitis [facility]- [facility] Ancillary Services Verena franklin 2021-12-07 00:00 Unspecified asthma, uncomplicated [facility] Ancillary Services Verena franklin 2021-12-07 00:00 Low back pain [facility]In [facility] Ancillary Services Verena cabanoemi 2021-12-07 00:00 Alcoholism in family Walk-In [facility] Pr [facility] Care & Ancillary Services Verena franklin 2021-12-07 00:00 Family history of alcohol abuse and Wa lk-In Clinic Primary Care & dependence Ancillary Services Verena franklin Procedures date description facility 2021-11-29 00:00 Visit Code Hold [facility] Kaden Results/Labs No information. Social History date description facility 2021-11-29 00:00 Former smoker [facility] Kaden Vital Signs date measurement value units 2021-11-29 00:00 BMI 23.69 kg/m2 2021-11-29 00:00 BP_diastolic 75 mmHg 2021-11-29 00:00 BP_diastolic 78 mmHg 2021-11-29 00:00 BP_systolic 150 mmHg 2021-11-29 00:00 BP_systolic 154 mmHg 2021-11-29 00:00 heart_rate 87 /min 2021-11-29 00:00 height_metric 161.29 cm 2021-11-29 00:00 height_standard 63.5 in 2021-11-29 00:00 respiration_rate 20 /min 2021-11-29 00:00 temperature_metric 36.94 C 2021-11-29 00:00 temperature_standard 98.5 F 2021-11-29 00:00 weight_metric 61.42 kg 2021-11-29 00:00 weight_standard 135.4 lb
[2022-02-16 19:46] LABS: PT - PROTHROMBIN TIME 10.8 secs (9.9-12.6)
[2022-02-16 20:01] LABS: THYROID STIMULATING HORMONE 0.77 uIU/mL (0.34-5.60)
[2022-02-16 20:04] LABS: FREE T4 (FREE THYROXINE) 0.87 ng/dL (0.58-1.64)
[2022-02-16] MEDS ORDERED: diltiaZEM 30 MG TABLET PO STA (20:04)
[2022-02-16 20:23] LABS: ALBUMIN 3.9 g/dL (3.2-5.5); ALBUMIN/GLOBULIN RATIO 1.2 (1.0-2.2); BILIRUBIN,TOTAL 0.9 mg/dL (0.2-1.0); CALCIUM 9.4 mg/dL (8.5-10.3); CREATININE 0.9 mg/dL (0.4-1.0); POTASSIUM 4.2 mmol/L (3.5-5.0); TOTAL PROTEIN 7.2 g/dL (6.7-8.2)
[2022-02-16] MEDS ORDERED: APIXABAN 5 MG TABLET PO STA (21:20)
[2022-02-16 21:38] VITALS: BP 144/69
== END 2022-02-16 21:43 | disposition home or self-care (01) ==
LOC: ED 19:08
DX: I48.91 Unspecified atrial fibrillation (principal); I25.2 Old myocardial infarction; T44.7X6A Underdosing of beta-adrenoreceptor antagonists, initial encounter; Z91.138 Patient's unintentional underdosing of medication regimen for other reason; J44.9 Chronic obstructive pulmonary disease, unspecified; I10 Essential (primary) hypertension; F17.200 Nicotine dependence, unspecified, uncomplicated
CPT/HCPCS: 36415; 71045; 80053; 83690; 84439; 84443; 84484; 85025; 85610; 93005; 96374; 99284; A9270

== ENCOUNTER 2022-03-28 15:50 | Emergency (ER) | payer MEDICARE ==
[2022-03-28 16:00] VITALS: BP 136/87
[2022-03-28] MEDS ORDERED: LIDOCAINE PATCH 5% TOP STA (16:17)
--- NOTE | 2022-03-28 16:19 | ED Physician Documentation ---
PD HPI SKIN - Stated complaint Stated Complaint: ITCHING/SHINGLES - Chief complaint Chief Complaint: Wound - History obtained from History obtained from: Patient - Additional information Additional information: She developed severely painful and itchy shingles in the early part of February. Has been having ongoing pain and itching since then. The only thing that has been helpful has been hydrocodone. She is on pregabalin as well. She is frustrated because she went to the walk-in clinic several times and she feels they have been helping her. This sounds like it is because they are not prescri buddy narcotics for her. PD PAST MEDICAL HISTORY - Past Medical History Cardiovascular: Hypertension Respiratory: Asthma, COPD - Past Surgical History Past Surgical History: Yes Cardiovascular: Coronary stent - Present Medications Home Medications: Ambulatory Orders Medication Instructions Recorded Confirmed Acetaminophen/Cod 300/30 [Tylenol 1 tab PO Q6HR PRN 06/30/16 06/30/16 #3] Albuterol 2.5 mg INH Q4H PRN #30 neb 06/30/16 Albuterol Sulf [Ventolin Hfa 2 puffs INH Q3HR PRN 06/30/16 06/30/16 Inhaler] Azithromycin [Zithromax] 250 mg PO DAILY #6 tablet 06/30/16 Benzonatate [Tessalon] 100 mg PO TID PRN #20 capsule 06/30/16 Benzonatate [Tessalon] 100 mg PO TID PRN #20 capsule 06/30/16 Fluticasone [Flonase] 1 sprays ARLENE BID PRN #1 bottle 06/30/16 guaiFENesin/CODEINE [Robitussin AC] 5 - 10 ml PO Q6H PRN #120 udc 06/30/16 predniSONE [Deltasone] 60 mg PO DAILY 5 Days tablet 06/30/16 traMADol [Ultram] 50 mg PO DAILY PRN 06/30/16 06/30/16 Apixaban [Eliquis] 2.5 mg PO BID #60 tablet 02/16/22 Aspirin [Vazalore] 81 mg PO DAILY 02/16/22 02/16/22 Atorvastatin Calcium 40 mg PO QPM 02/16/22 02/16/22 Clopidogrel [Plavix] 75 mg PO DAILY 02/16/22 02/16/22 Metoprolol Succinate [Toprol Xl] 50 mg PO DAILY #7 tablet 02/16/22 lisinopriL [Zestril] 5 mg PO DAILY 02/16/22 02/16/22 HYDROcod/ACETAM 5/325 [[place] 5/325] 1 - 2 tab PO Q6H PRN #20 tablet 03/28/22 - Allergies Allergies/Adverse Reactions: Allergies Allergy/AdvReac Type Severity Reaction Status Date / Time aspirin Allergy Anaphylaxis Verified 06/30/16 10:57 - Social History Does the pt smoke?: Yes Smoking Status: Current every day smoker Does the pt drink ETOH?: No Does the pt have substance abuse?: No - Immunizations Immunizations are current?: No - POLST Patient has POLST: No PD ED PE NORMAL - Vitals Vital signs reviewed: Yes - General General: Alert and oriented X 3, No acute distress - Derm Derm: Other (There is healing but of severe shingles on the left upper back and chest wall.) - Neuro Neuro: Alert and oriented X 3, Normal speech Results - Vitals Vitals: Vital Signs - 24 hr 03/28/22 15:57 Temperature 36.7 C Heart Rate 93 Respiratory 18 Rate Blood Pressure 136/87 H O2 Saturation 97 Oxygen O2 Source Room air PD Medical Decision Making - ED course ED course: 76-year-old woman with ongoing postherpetic neuralgia requiring narcotic analgesia. Discussed with her that narcotics from the emergency department would be a limited occurrence and encouraged primary care follow-up. Departure - Departure Disposition: 01 Home, Self Care Clinical Impression: Post herpetic neuralgia Condition: Good Record reviewed to determine appropriate education?: Yes Instructions: ED Shingles Prescriptions: HYDROcod/ACETAM 5/325 [[place] 5/325] 1 - 2 tab PO Q6H PRN #20 tablet PRN Reason: Pain Comments: I sent your prescription electronically to [facility] in [place]. As discussed, narcotics for this condition from the emergency department will be a limited occurrence and you should follow-up with your primary care physician for further evaluation and treatment. I am prescribing a short course of narcotic pain medication for you. These are potentially dangerous and addictive medications that should be used carefully. These medications may constipate you. Take an lhen-fui-aqulqvl stool softener (docusate) twice daily with plenty of water while taking these medications. If you go 24 hours without a bowel movement, take snzl-oyp-[id number] miralax, per package instructions. Do not drink or drive while taking these medications. If you received narcotic or sedating medications while in the emergency department, do not drive for 24 hours. Store this medication in a safe, secure place and out of reach of children. It is a violation of federal law to give or sell this medication to another person or to use in a manner other than prescribed. The ED will not refill narcotic prescriptions, including prescriptions lost or stolen. To dispose of unwanted medications: 1. [facility] [address] in [place] has a medication drop box. They accept prescription medications (in pill form) Friday through Friday 9:00 a.m. to 5:00 p.m. 2. The [facility] [employer] accepts prescription medications (in pill form only) for disposal year round. Call for more information. 3. Contact the [facility] for the next [facility] sponsored prescription drug collection event. , [phone], or [phone]; Note that many narcotic pain relievers also contain Tylenol/acetaminophen. Please ensure that your total dose of acetaminophen from all sources does not exceed 3 g (3000 mg) per day.
== END 2022-03-28 16:27 | disposition home or self-care (01) ==
LOC: ED 15:50
DX: B02.29 Other postherpetic nervous system involvement (principal); F17.200 Nicotine dependence, unspecified, uncomplicated
CPT/HCPCS: 99282; 99284; A9270

== ENCOUNTER 2022-05-31 12:55 | Outpatient (CLI) | payer MEDICARE | END 2022-05-31 12:56 | disposition home or self-care (01) | LOC: DI 12:55 | PROVIDERS: ATTEND Internal Medicine Cardiovascular Disease | DX: I48.91 Unspecified atrial fibrillation (principal); I25.10 Atherosclerotic heart disease of native coronary artery without angina pectoris; I08.1 Rheumatic disorders of both mitral and tricuspid valves | CPT/HCPCS: 93306 ==

== ENCOUNTER 2023-09-02 13:52 | Outpatient (CLI) | payer MEDICARE ==
[2023-09-02] MEDS: ALBUTEROL 1 PUFF INH STA (16:37)
== END 2023-09-02 13:53 | disposition home or self-care (01) ==
LOC: RT 13:52
PROVIDERS: ATTEND Internal Medicine
DX: R06.02 Shortness of breath (principal)
CPT/HCPCS: 94060

== ENCOUNTER 2023-09-13 18:18 | Outpatient (CLI) | payer MEDICARE ==
--- NOTE | 2023-09-14 10:03 | XRAY Report ---
PROCEDURE: Chest 2V INDICATIONS: SHORTNESS OF BREATH TECHNIQUE: 2 views of the chest were acquired. COMPARISON: 02/16/2022 FINDINGS: Surgical changes and devices: None. Lungs and pleura: No pleural effusions or pneumothorax. Lungs are clear. Mediastinum: Mediastinal contours appear normal. Heart size is normal. Bones and chest wall: No suspicious bony lesions. Overlying soft tissues appear unremarkable. Mil d anterior wedging of the T7 vertebral body. IMPRESSION: No acute cardiopulmonary process. Reviewed by: Yeyo Logan MD on 09/14/2023 10:01 AM PDT Approved by: Yeyo Logan MD on 09/14/2023 10:01 AM PDT Station ID: [id number]
== END 2023-09-13 18:19 | disposition home or self-care (01) ==
LOC: DI 18:18
PROVIDERS: ATTEND Physician Assistant Medical
DX: R06.02 Shortness of breath (principal)

== ENCOUNTER 2023-09-24 18:05 | Emergency (ER) | payer OTHER, MEDICARE ==
[2023-09-24 18:38] VITALS: BP 154/85; O2SAT 99
== END 2023-09-24 18:51 | disposition left against medical advice (07) ==
LOC: ED 18:05
DX: Z53.21 Procedure and treatment not carried out due to patient leaving prior to being seen by health care provider (principal)

== ENCOUNTER 2023-09-27 15:41 | Outpatient (CLI) | payer MEDICARE ==
--- NOTE | 2023-09-27 21:25 | XRAY Report ---
PROCEDURE: Tib/Fib LT INDICATIONS: SPRAIN OF OTHER SPECIFIED PARTS OF LEFT KNEE TECHNIQUE: 2 views of the tibia and fibula were acquired. COMPARISON: Left knee from the same date. FINDINGS: Bones: No fractures or dislocations. No suspicious bony lesions. Soft tissues: No suspicious soft tissue calcifications or masses. IMPRESSION: No acute bony abnormality. Reviewed by: Pete Back MD on 09/27/2023 9:24 PM PDT Approved by: Pete Back MD on 09/27/2023 9:24 PM PDT Station ID: [id number]
--- NOTE | 2023-09-27 22:07 | XRAY Report ---
PROCEDURE: Shoulder 2+V BL INDICATIONS: OTHER SPRAIN OF RIGHT SHOULDER JOINT TECHNIQUE: 3 views of the left shoulder and 2 views of the right shoulder were acquired. COMPARISON: Left shoulder dated FINDINGS: Bones: No fractures or dislocations. No suspicious bony lesions. Visualized ribs appear intact. Ag ain noted is mild to moderate glenohumeral joint degenerative arthritis of the left shoulder. There i s also at least moderate glenohumeral joint degenerative change involving the right shoulder. Soft tissues: No suspicious soft tissue calcifications. The visualized lungs are within normal limi ts. IMPRESSION: 1. No acute bony abnormality. 2. Bilateral glenohumeral joint degenerative change, right greater than left. Reviewed by: Pete Back MD on 09/27/2023 10:06 PM PDT Approved by: Pete Back MD on 09/27/2023 10:06 PM PDT Station ID: [id number]
--- NOTE | 2023-09-28 02:21 | XRAY Report ---
PROCEDURE: Knee 3V LT INDICATIONS: SPRAIN OF OTHER SPECIFIED PARTS OF LEFT KNEE TECHNIQUE: 3 views of the knee(s) were acquired. COMPARISON: None. FINDINGS: Bones: No fractures or dislocations. There are mild degenerative change. No suspicious bony lesions . Soft tissues: No knee joint effusion. No suspicious soft tissue calcifications or masses. IMPRESSION: Very mild degenerative change. No acute bony abnormality. Reviewed by: Pete Back MD on 09/28/2023 2:20 AM PDT Approved by: Pete Back MD on 09/28/2023 2:20 AM PDT Station ID: [id number]
== END 2023-09-27 15:42 | disposition home or self-care (01) ==
LOC: DI 15:41
PROVIDERS: ATTEND Emergency Medicine
DX: S43.491A Other sprain of right shoulder joint, initial encounter (principal); S83.8X2A Sprain of other specified parts of left knee, initial encounter